=== PATIENT | male | born 1955 | race Caucasian/White ===

== ENCOUNTER → 2016-03-14 | Outpatient (CLI) | payer OTHER ==
--- NOTE | 2016-03-14 19:16 | DIAGNOSTIC IMAGING REPORT ---
PROCEDURE: MR BRAIN W/WO CONTRAST INDICATION: DIZZINESS TECHNIQUE: Noncontrast T1 sagittal and T2 coronal images. T2, FLAIR, gradient, and diffusion axial images of the brain. Thin-cut T1 axial and 3D T2- weighted FIESTA images of the IACs were obtained. Following 20 mL of intravenous gadolinium (ProHance) thin-cut T1 axial, and FAT-SAT T1 axial and coronal images were obtained of the IACs followed by FAT-SAT T1 axial images of the brain. COMPARISON: None. FINDINGS: BRAIN: There are a few scattered foci of abnormal signal in the white matter and basal ganglia compatible with mild old small vessel changes. Brain and ventricles are otherwise, there is no evidence of acute process (diffusion imaging). No enhancing lesions are identified. There is a 2 cm retention cyst in the left maxillary sinus. Sinuses and mastoids are otherwise normal. INTERNAL AUDITORY CANALS: Internal auditory canals are normal. The visualized temporal bone structures are within normal limits. There is no evidence of acoustic neuroma. IMPRESSION: 1. There are a few scattered foci of abnormal signal in the white matter and basal ganglia compatible with mild old small vessel disease. 2. Otherwise negative MRI of the brain. 3. There is a 2 cm chronic retention cyst in the left maxillary sinus. 4. Normal internal auditory canals. No evidence of acoustic neuroma.
== END ==
LOC: MRI SRH 14:59
DX: R42 Dizziness and giddiness (principal); I67.9 Cerebrovascular disease, unspecified
CPT/HCPCS: 90074; 92560; 92630